=== PATIENT | male | born 1950 | race Caucasian/White ===

== ENCOUNTER 2018-12-10 16:19 | Outpatient (REF) | payer MEDICARE, OTHER, SELFPAY ==
[2018-12-10 21:07] LABS: Anion Gap 9.3 mmol/L (3-11); BUN 27 mg/dL (7-18); CO2 28.7 mmol/L (21.0-32.0); CREATININE 1.62 mg/dL (0.70-1.30); Calcium 9.9 mg/dL (8.5-10.1); Calculated LDL 129 mg/dL; Chloride 102 mmol/L (98-107); Cholesterol 229 mg/dL (50-200); Estimated GFR 42.34 (mL/min/1.73m2); Glucose 126 mg/dL (70-100); HDL Cholesterol 55 mg/dL (40-60); Potassium 5.3 mmol/L (3.5-5.1); Sodium 140 mmol/L (136-145); Triglyceride 227 mg/dL (30-150)
== END 2018-12-10 16:39 ==
LOC: NCHCN 16:19
PROVIDERS: PCP Internal Medicine; Visit Provider Family Medicine
DX: E11.9 Type 2 diabetes mellitus without complications (principal); I10 Essential (primary) hypertension
CPT/HCPCS: 80048; 80061

== ENCOUNTER 2019-08-23 20:47 | Outpatient (REF) | payer MEDICARE, OTHER, SELFPAY ==
[2019-08-23 21:12] LABS: ALT 45 U/L (16-63); AST 36 U/L (15-37); Albumin 4.1 g/dL (3.4-5.0); Alkaline Phosphatase 41 U/L (46-116); Anion Gap 9.2 mmol/L (3-11); BUN 35 mg/dL (7-18); Bilirubin, Total 0.6 mg/dL (0.2-1.0); CO2 24.8 mmol/L (21.0-32.0); CREATININE 1.99 mg/dL (0.70-1.30); Calcium 9.6 mg/dL (8.5-10.1); Chloride 98 mmol/L (98-107); Estimated GFR 33.39 (mL/min/1.73m2); Glucose 172 mg/dL (74-106); Potassium 4.4 mmol/L (3.5-5.1); Sodium 132 mmol/L (136-145); Total Protein 8.3 g/dL (6.4-8.2)
[2019-08-23 21:16] LABS: Abs Immature Grans 0.01 k/cumm (0.0-0.09); Absolute Basophil Count 0.01 k/cumm (0.0-0.2); Absolute Eosinophil Count 0.18 k/cumm (0.0-0.7); Absolute Lymphocyte Count 1.32 k/cumm (1.2-3.4); Absolute Monocyte Count 0.68 k/cumm (0.11-0.7); Absolute Neutrophil Count 4.26 k/cumm (1.2-6.7); Basophils % 0.2; Eosinophils % 2.8; HCT 44.2 % (40.0-50.0); HGB 14.8 g/dL (13.5-17.5); Immature Grans % 0.2 %; Lymphocytes % 20.4; Mean Corp. HGB Concentration 33.5 g/dL (32.0-36.0); Mean Corpuscular Volume 95.7 fL (80-95); Monocytes % 10.5; Neutrophils % 65.9; Platelet Count 136 x1000/uL (130-400); RBC 4.62 m/cumm (4.50-6.00); RBC Distribution Width 11.2 % (11.8-14.1); White Blood Cell Count 6.46 k/cumm (4.4-10.8)
== END 2019-08-23 21:07 ==
LOC: NCHCN 20:47
PROVIDERS: PCP Internal Medicine; Visit Provider Family Medicine
DX: N18.3 Chronic kidney disease, stage 3 (moderate) (principal); F10.10 Alcohol abuse, uncomplicated
CPT/HCPCS: 80053; 85025

== ENCOUNTER 2020-07-06 08:23 | Outpatient (REF) | payer MEDICARE, OTHER, SELFPAY ==
[2020-07-06 13:32] LABS: ALT 23 U/L (16-63); AST 17 U/L (15-37); Albumin 4.2 g/dL (3.4-5.0); Alkaline Phosphatase 50 U/L (46-116); Anion Gap 8.9 mmol/L (3-11); BUN 40 mg/dL (7-18); Bilirubin, Total 0.5 mg/dL (0.2-1.0); CO2 29.1 mmol/L (21.0-32.0); CREATININE 2.3 mg/dL (0.70-1.30); Calcium 9.9 mg/dL (8.5-10.1); Calculated LDL 150 mg/dL (<100); Chloride 101 mmol/L (98-107); Cholesterol 245 mg/dL (<200); Estimated GFR 28.17 (mL/min/1.73m2); Glucose 127 mg/dL (74-106); HDL Cholesterol 69 mg/dL (40-60); Potassium 4.3 mmol/L (3.5-5.1); Sodium 139 mmol/L (136-145); Total Protein 8.5 g/dL (6.4-8.2); Triglyceride 134 mg/dL (<150)
[2020-07-06 14:20] LABS: COMMENT (LAB VIEW ONLY) 132.68 mg/dL; Microalb ug/mg Crea 124.4 ug/mg Cr
== END 2020-07-06 08:24 | disposition home or self-care (01) ==
LOC: NCHCN 08:23
PROVIDERS: PCP Internal Medicine; Visit Provider Family Medicine
DX: E11.9 Type 2 diabetes mellitus without complications (principal); I10 Essential (primary) hypertension; N18.30 Chronic kidney disease, stage 3 unspecified; F10.10 Alcohol abuse, uncomplicated
CPT/HCPCS: 80053; 80061; 82043; 82570; 83036

== ENCOUNTER 2021-01-02 12:35 | Outpatient (REF) | payer MEDICARE, OTHER, SELFPAY ==
[2021-01-02 14:05] LABS: Anion Gap 11.2 mmol/L (3-11); BUN 39 mg/dL (7-18); CO2 25.8 mmol/L (21.0-32.0); Calcium 9.5 mg/dL (8.5-10.1); Chloride 100 mmol/L (98-107); Estimated GFR 33.01 (mL/min/1.73m2); Glucose 135 mg/dL (74-106); Potassium 4.5 mmol/L (3.5-5.1); Sodium 137 mmol/L (136-145)
== END 2021-01-02 12:36 | disposition home or self-care (01) ==
LOC: NCHCN 12:35
PROVIDERS: PCP Internal Medicine; Visit Provider Family Medicine
DX: I10 Essential (primary) hypertension (principal); N18.4 Chronic kidney disease, stage 4 (severe); E66.9 Obesity, unspecified
CPT/HCPCS: 80048

== ENCOUNTER 2022-02-07 13:19 | Outpatient (REF) | payer MEDICARE, OTHER, SELFPAY ==
[2022-02-07 15:19] LABS: Prothrombin Time 36.5 sec (9.3-11.0)
[2022-02-07 16:12] LABS: Abs Immature Grans 0.03 10^3/uL (0.0-0.06); Absolute Basophil Count 0.04 10^3/uL (0.0-0.2); Absolute Eosinophil Count 0.12 10^3/uL (0.0-0.7); Absolute Lymphocyte Count 2.67 10^3/uL (1.2-3.4); Absolute Monocyte Count 1.12 10^3/uL (0.1-0.8); Absolute Neutrophil Count 5.86 10^3/uL (1.2-6.7); Basophils % 0.4; Eosinophils % 1.2; HGB 14.2 g/dL (13.5-17.5); Immature Grans % 0.3; Lymphocytes % 27.1; MCH 30.9 pg (27.0-33.0); MCHC 33.8 % (32.0-36.0); MCV 92 fL (80-95); MPV 13.3 fL (8.0-11.0); Monocytes % 11.4; Neutrophils % 59.6; Platelet Count 161 10^3/uL (130-400); RBC 4.59 10^6/uL (4.36-5.78); RDW 11.6 % (11.8-14.1); RDW-SD 39.1 fL; WBC 9.84 10^3/uL (4.4-10.8)
[2022-02-07 16:34] LABS: ALT 310 U/L (16-63); AST 87 U/L (15-37); Albumin 4.1 g/dL (3.4-5.0); Alkaline Phosphatase 70 U/L (46-116); Anion Gap 9.4 mmol/L (3-11); BUN 32 mg/dL (7-18); Bilirubin, Total 1.1 mg/dL (0.2-1.0); CO2 24.6 mmol/L (21.0-32.0); CREATININE 1.4 mg/dL (0.70-1.30); Calcium 9.7 mg/dL (8.5-10.1); Chloride 99 mmol/L (98-107); Estimated GFR 53.07 (mL/min/1.73m2); Glucose 126 mg/dL (74-106); Potassium 3.8 mmol/L (3.5-5.1); Sodium 133 mmol/L (136-145); TSH (W/Ref FT4) 0.51 uIU/mL (0.36-3.74); Total Protein 8.2 g/dL (6.4-8.2); Vitamin B12 1461 pg/mL (193-986)
[2022-02-07 16:58] LABS: Hemoglobin A1C 6.6 % (<5.7)
[2022-02-07 21:15] LABS: COMMENT (LAB VIEW ONLY) 116.94 mg/dL; Microalb ug/mg Crea 7.3 ug/mg Cr
[2022-02-13 00:32] LABS: Thiamine (Vitamin B1), WB 129 nmol/L (70-180)
== END 2022-02-07 13:20 | disposition home or self-care (01) ==
LOC: NCHCN 13:19
PROVIDERS: PCP Internal Medicine; Visit Provider Family Medicine
DX: Z65.8 Other specified problems related to psychosocial circumstances (principal); E11.9 Type 2 diabetes mellitus without complications; I10 Essential (primary) hypertension; R63.4 Abnormal weight loss
CPT/HCPCS: 80053; 82043; 82570; 82607; 83036; 84425; 84443; 85025; 85610

== ENCOUNTER 2022-03-26 14:54 | Outpatient (REF) | payer MEDICARE, OTHER, SELFPAY ==
[2022-03-26 21:35] LABS: ALT 34 U/L (16-63); AST 32 U/L (15-37)
[2022-03-31 12:17] LABS: ALT 28 U/L (7-55); ActiTest Grade A0-A1; ActiTest Interpretation no activity; ActiTest Score 0.18; Alpha-2-Macroglobulin 325 mg/dL (100 - 280); Apoliprotein A1 136 mg/dL (>=120); Bilirubin, Total 0.5 mg/dL (<=1.2); FibroTest Interpretation moderate fibrosis; FibroTest Score 0.55; FibroTest Stage F2; GGT 23 U/L (8 - 61); Haptoglobin 170 mg/dL (30 - 200)
== END 2022-03-26 14:55 | disposition home or self-care (01) ==
LOC: NCHCN 14:54
PROVIDERS: PCP Internal Medicine; Visit Provider Family Medicine
DX: K70.30 Alcoholic cirrhosis of liver without ascites (principal); F10.10 Alcohol abuse, uncomplicated; R74.8 Abnormal levels of other serum enzymes
CPT/HCPCS: 81596; 84450; 84460

== ENCOUNTER 2022-07-25 16:14 | Outpatient (REF) | payer MEDICARE, SELFPAY ==
[2022-07-25 20:52] LABS: Prothrombin Time 9.9 sec (9.3-11.0)
[2022-07-25 21:01] LABS: ALT 32 U/L (16-63); AST 29 U/L (15-37); Alkaline Phosphatase 86 U/L (46-116); Anion Gap 8.2 mmol/L (3-11); BUN 33 mg/dL (7-18); Bilirubin, Total 0.4 mg/dL (0.2-1.0); CO2 26.8 mmol/L (21.0-32.0); CREATININE 1.5 mg/dL (0.70-1.30); Calcium 9.5 mg/dL (8.5-10.1); Calculated LDL 56 mg/dL (<100); Chloride 102 mmol/L (98-107); Cholesterol 117 mg/dL (<200); Estimated GFR 48.85 (mL/min/1.73m2); Glucose 125 mg/dL (74-106); HDL Cholesterol 47 mg/dL (40-60); Potassium 4.4 mmol/L (3.5-5.1); Sodium 137 mmol/L (136-145); Total Protein 8.6 g/dL (6.4-8.2); Triglyceride 70 mg/dL (<150)
== END 2022-07-25 16:15 | disposition home or self-care (01) ==
LOC: NCHCN 16:14
PROVIDERS: PCP Internal Medicine; Visit Provider Family Medicine
DX: E11.9 Type 2 diabetes mellitus without complications (principal); K70.30 Alcoholic cirrhosis of liver without ascites; I10 Essential (primary) hypertension
CPT/HCPCS: 80053; 80061; 83036; 85610

== ENCOUNTER 2023-06-26 16:11 | Outpatient (REF) | payer MEDICARE, SELFPAY ==
[2023-06-26 21:31] LABS: COMMENT (LAB VIEW ONLY) 140.55 mg/dL
== END 2023-06-26 16:12 | disposition home or self-care (01) ==
LOC: NCHCN 16:11
PROVIDERS: PCP Internal Medicine; Visit Provider Family Medicine
DX: E11.9 Type 2 diabetes mellitus without complications (principal)
CPT/HCPCS: 82043; 82570

== ENCOUNTER 2023-10-21 14:53 | Outpatient (REF) | payer MEDICARE, SELFPAY ==
[2023-10-21 21:16] LABS: Anion Gap 11.6 mmol/L (3-11); BUN 35 mg/dL (7-18); CO2 24.4 mmol/L (21.0-32.0); CREATININE 1.4 mg/dL (0.70-1.30); Calcium 9.3 mg/dL (8.5-10.1); Chloride 105 mmol/L (98-107); Estimated GFR 52.41 (mL/min/1.73m2); Glucose 116 mg/dL (74-106); Potassium 4.6 mmol/L (3.5-5.1); Sodium 141 mmol/L (136-145)
[2023-10-21 21:20] LABS: Hemoglobin A1C 6.1 % (<5.7)
== END 2023-10-21 14:54 | disposition home or self-care (01) ==
LOC: NCHCN 14:53
PROVIDERS: PCP Internal Medicine; Visit Provider Family Medicine
DX: I10 Essential (primary) hypertension (principal); E11.9 Type 2 diabetes mellitus without complications
CPT/HCPCS: 80048; 83036

== ENCOUNTER 2024-02-15 09:02 | Outpatient (REF) | payer MEDICARE, SELFPAY ==
--- NOTE | 2024-02-15 08:25 | SKI_PTH ---
PATIENT: Tolu Dugan LOC: [facility] U#:[id number] AGE/SX: 73/M ROOM: RE02/15/[address]: Gilda Lizama : 1950 BED: DIS: 02/15/2024 SPEC #: [id number] RECD: 02/15/24 17:35 STATUS: TITA REQ #: [id number] ROXANNA: 02/15/24 08:[address]: Gilda Lizama DEPT: Surgical Specimen RECD BY: Juju Brooks ENTERED: 02/15/24 17:35 SP TYPE: MARILYN CHAPMAN DR: Bigg Mcintyre Tissues: 1 - SKIN BIOPSY(SHAVE/PUNCH) Procedures: SKIN LEVEL 4 Comments: [id number]
== END 2024-02-15 09:03 | disposition home or self-care (01) ==
LOC: NCHCN 09:02
PROVIDERS: PCP Internal Medicine; Visit Provider Family Medicine
DX: D48.5 Neoplasm of uncertain behavior of skin (principal); C44.519 Basal cell carcinoma of skin of other part of trunk
CPT/HCPCS: 88305

== ENCOUNTER 2024-12-09 10:02 | Outpatient (REF) | payer MEDICARE, SELFPAY ==
[2024-12-09 14:49] LABS: Anion Gap 6.6 mmol/L (3-11); BUN 31 mg/dL (7-18); CO2 27.4 mmol/L (21.0-32.0); Calcium 9.5 mg/dL (8.5-10.1); Chloride 101 mmol/L (98-107); Estimated GFR 52.09 (mL/min/1.73m2); Glucose 137 mg/dL (74-106); Potassium 4.7 mmol/L (3.5-5.1); Sodium 135 mmol/L (136-145)
[2024-12-09 14:56] LABS: Hemoglobin A1C 6.0 % (<5.7)
== END 2024-12-09 10:03 | disposition home or self-care (01) ==
LOC: NCHCN 10:02
PROVIDERS: PCP Internal Medicine; Visit Provider Family Medicine
DX: R73.03 Prediabetes (principal)
CPT/HCPCS: 80048; 83036